=== PATIENT | male | born 1980 | race African-American/Black ===

== ENCOUNTER 2019-01-10 23:48 | Emergency (ER) | payer MEDICAID ==
[~2019-01-10] VITALS: Ht 180.3 cm; Wt 97.5 kg
[2019-01-11 05:23] VITALS: BP 113/82
== END 2019-01-11 05:47 | disposition home or self-care (01) ==
LOC: ER 23:49
DX: S40.862A Insect bite (nonvenomous) of left upper arm, initial encounter (principal); S90.561A Insect bite (nonvenomous), right ankle, initial encounter; W57.XXXA Bitten or stung by nonvenomous insect and other nonvenomous arthropods, initial encounter; Y93.89 Activity, other specified; Y99.8 Other external cause status; Y92.89 Other specified places as the place of occurrence of the external cause

== ENCOUNTER 2021-04-23 10:18 | Emergency (ER) | payer MEDICAID ==
[~2021-04-23] VITALS: Ht 182.9 cm; Wt 99.8 kg
[2021-04-23 10:44] VITALS: BP 132/86
[2021-04-23 11:02] LABS: Urine WBC None Seen /hpf (0 - 3)
[2021-04-23 11:23] LABS: Urine Bacteria NONE SEEN /hpf (None Seen); Urine Blood Negative /uL (Negative); Urine Specific Gravity 1.004 (1.001-1.035)
[2021-04-23] MEDS ORDERED: AZIT500T66 PO ×2 (11:44→11:46)
[2021-04-23] MEDS ORDERED: PROM1SOL4 PO (11:46)
== END 2021-04-23 11:52 | disposition home or self-care (01) ==
LOC: ER 10:18
DX: J20.9 Acute bronchitis, unspecified (principal); R10.9 Unspecified abdominal pain; Z79.2 Long term (current) use of antibiotics; Z79.899 Other long term (current) drug therapy
CPT/HCPCS: 71046; 81001

== ENCOUNTER 2023-07-07 09:30 | Emergency (ER) | payer MEDICAID, OTHER ==
[~2023-07-07] VITALS: Ht 180.3 cm; Wt 100.3 kg
[~2023-07-07 09:30] MED LIST: AZIT500T66 PO; PROM1SOL4 PO
[2023-07-07 09:36] VITALS: TEMP 98.2
[2023-07-07 09:45] VITALS: BP 121/88; PULSE 76; RESP 18; O2SAT 98
[2023-07-07] MEDS ORDERED: AMOX875T4 PO (10:54)
[2023-07-07] MEDS ORDERED: IBUP-1455 PO (10:54)
== END 2023-07-07 10:54 | disposition home or self-care (01) ==
LOC: ER 09:30
DX: K02.9 Dental caries, unspecified (principal)

== ENCOUNTER 2024-02-19 15:05 | Emergency (ER) | payer MEDICAID, OTHER ==
[~2024-02-19] VITALS: Ht 180.3 cm; Wt 96.6 kg
[~2024-02-19 15:05] MED LIST changes: +AMOX875T4 PO; +AUG875T PO; +IBUP-1455 PO; +TRAM50TA2 PO
[2024-02-19 15:37] VITALS: BP 116/68; PULSE 83; RESP 18; O2SAT 98
[2024-02-19] MEDS: KETOROLAC TROMETH 60MG/2ML VIAL IM ONE (15:45)
[2024-02-19] MEDS: DexAMETHasone SOD PHOS 10MG/1ML VIAL INJ IM ONE (15:45)
[2024-02-19 16:10] LABS: Rapid Strep A Screen-Throat Negative
[2024-02-19] MEDS ORDERED: IBUP-1455 PO (17:09)
== END 2024-02-19 18:06 | disposition home or self-care (01) ==
LOC: ER 15:05
DX: J02.9 Acute pharyngitis, unspecified (principal); R13.10 Dysphagia, unspecified; R07.9 Chest pain, unspecified; Z98.890 Other specified postprocedural states
CPT/HCPCS: 70360; 71046; 87070; 87880; 96372; 99284; J1100; J1885

== ENCOUNTER 2024-05-04 17:23 | Emergency (ER) | payer MEDICAID ==
[~2024-05-04] VITALS: Ht 182.9 cm; Wt 95.0 kg
--- NOTE | 2024-05-04 21:08 | ED.PDOC ---
SOB-HPI HPI Comments THIS IS A 43-YEAR-OLD MALE PRESENTS TO THE ED CHIEF COMPLAINT SORE THROAT CONGESTION X3 DAYS. PATIENT STATES HAS BEEN TAKING [id number] MEDICATIONS WITH 0 RELIEF. HIS MAIN COMPLAINT IS THE SORE THROAT. HE DENIES CHEST PAIN, DIFFICULTY BREATHING, SHORTNESS OF BREATH, DIARRHEA, OR VOMITING. Chief Complaint: Flu like Time Seen by MD: 18:38 Primary Care Provider: NONE Reviewed notes: Nurses Notes, Medications, Allergies Information Source: Patient Mode of Arrival: Ambulatory Past Medical History PAST MEDICAL HISTORY: Seizures Surgical History: Hernia Repair Family History Family History: Reviewed,noncontributory to illness Social History Smoker: Non-Smoker Alcohol: Occasionally Drugs: Denies Drug Use Lives In: Home Constitutional: reports: fever; denies: chills, diaphoresis, fatigue, malaise, sweats, weakness, others EENTM: reports: nasal discharge, throat pain, throat swelling; denies: blurred vision, double vision, ear bleeding, ear discharge, ear drainage, ear pain, ear ringing, eye pain, eye redness, hearing loss, mouth pain, mouth swelling, nose bleeding, nose congestion, nose pain, photophobia, tearing, voice changes, others Respiratory: denies: cough, hemoptysis, orthopnea, SOB at rest, shortness of breath, SOB with excertion, stridor, wheezing, others Cardiovascular: denies: chest pain, dizzy spells, diaphoresis, Dyspnea on exertion, edema, irregular heart beat, left arm pain, lightheadedness, palpitations, PND, syncope, others Gastrointestinal: denies: abdomen distended, abdominal pain, blood streaked bowels, constipated, diarrhea, dysphagia, difficulty swallowing, hematemesis, melena, nausea, poor appetite, poor fluid intake, rectal bleeding, rectal pain, vomiting, others Genitourinary: denies: burning, dysuria, flank pain, frequency, hematuria, incontinence, penile discharge, penile sore, pain, testicle pain, testicle swelling, urgency, others Neurological: denies: dizziness, fainting, headache, left sided numbness, left sided weakness, numbness, paresthesia, pre-existing deficit, right sided numbness, right sided weakness, seizure, speech problems, tingling, tremors, weakness, others Musculoskeletal: denies: back pain, gout, joint pain, joint swelling, muscle pain, muscle stiffness, neck pain, others Integumetry: denies: bruises, change in color, change in hair/nails, dryness, laceration, lesions, lumps, rash, wounds, others Allergic/Immunocompromised: denies: Difficulty Healing, Frequent Infections, Hives, Itching, others Hematologic/Lymphatic: denies: anemia, blood clots, easy bleeding, easy bruising, swollen glands, others Endocrine: denies: excessive hunger, excessive sweating, excessive thirst, excessive urination, flushing, intolerance to cold, intolerance to heat, unexplained weight gain, unexplained weight loss, others Psychiatric: denies: anxiety, bipolar disorder, depression, hopeless, panic disorder, schizophrenia, sleepless, suicidal, others Physical Exam General Appearance: No Apparent Distress, Normal HEENT: Pharyngeal Erythema (TONSILS GRADE 3 WITHOUT EXUDATE), TMs Normal Neck: Full Range of Motion, Non-Tender Respiratory: Lungs Clear, No Respiratory Distress, Normal Breath Sounds Cardiovascular: No Edema, No JVD, No Murmur, No Gallop, Normal Peripheral Pulses, Regular Rate/Rhythm Breast Exam: Deferred Gastrointestinal: No Organomegaly, Non Tender, No Pulsatile Mass, Normal Bowel Sounds, Soft Genitalia: Deferred Pelvic: Deferred Rectal: Deferred Extremities: Normal capillary refill, Normal inspection, Normal range of motion, Non-tender, No pedal edema Musculoskeletal : Apperance: Normal Neurologic: Alert, needle board repairer II-XII nml as Tested, No Motor Deficits, Normal Affect, Normal Mood, No Sensory Deficits Cerebellar Function: Normal Reflexes: Normal Skin: Dry, Normal Color, Warm Lymphatic: No Adenopathy Was a procedure done? Was a procedure done?: No Differential Dx Differential Diagnosis: Pneumonia, Sinusitis, Allergic Rhinitis, Otitis Media, Peritonsillar Abscess, Peritonsillar Cellulitis, Pharyngitis, URI X-Ray, Labs, Meds, VS Vital Signs Date Time Temp Pulse Resp B/P (MAP) Pulse Ox O2 Delivery O2 Flow Rate FiO2 05/04/24 17:42 98.3 90 18 118/81 (93) 100 Lab Test 05/04/24 20:15 Range/Units Influenza Type A Antigen Negative Negative Influenza Type B Antigen Negative Negative X-Ray, Labs, Meds, VS Comment LIKELY BACTERIAL WE WILL START TRIAL OF OUTPATIENT ANTIBIOTICS PATIENT GIVEN DECADRON 10 MG IM PRIOR TO DISCHARGE FOR THROAT PAIN AND SWELLING. PATIENT REQUESTING DISCHARGE AT THIS TIME. HE IS TO FOLLOW UP WITH HIS PCP IN 2-3 DAYS NECESSARY INCREASE P.O. FLUIDS WITH ELECTROLYTES CONSIDER POPSICLES FOR THROAT PAIN. [id number] TYLENOL OR MOTRIN NEEDED FOR PAIN AND FEVER PE R LABELED DOSING INSTRUCTIONS. PATIENT INDICATED UNDERSTANDING AGREES WITH DISCHARGE PLAN OF CARE. Time of 1ST Reevaluation: 22:32 Reevaluation 1ST: Improved Patient Education/Counseling: Diagnosis, Treatment, Prognosis, Need For Follow Up Family Education/Counseling: No Family Present Departure 1 Departure Time of Disposition: 22:31 Impression: Primary Impression: Pharyngitis Qualified Codes: J02.9 - Acute pharyngitis, unspecified Disposition: HOME / SELF CARE / HOMELESS Condition: Stable e-Prescriptions Amoxicillin & Pot Clavulanate (AUGMENTIN TABLET) 875 Mg Tb 1 TAB PO BID for 10 Days, #20 TAB Prov: DANILO MILNER 05/04/24 Discharged With: Self Critical Care Note Critical Care Time?: No Stability Stability form required: No Heart Score Heart Score: Heart Score Response (Comments) Value History N/A 0 EKG N/A 0 Age <45 0 Risk Factors N/A 0 Troponin N/A 0 Total 0 DANILO MILNER May 04, 2024 21:08
[2024-05-04 22:19] LABS: Rapid Influenza A Negative (Negative); Rapid Influenza B Negative (Negative)
[2024-05-04] MEDS ORDERED: AUG875T PO (22:31)
[2024-05-04] MEDS: DexAMETHasone SOD PHOS 10MG/1ML VIAL INJ IM ONE (23:05)
[2024-05-04 23:12] VITALS: BP 136/93; PULSE 94; RESP 16; TEMP 99.1; O2SAT 97
== END 2024-05-04 23:12 | disposition home or self-care (01) ==
LOC: ER 17:23
DX: J02.9 Acute pharyngitis, unspecified (principal); Z98.890 Other specified postprocedural states
CPT/HCPCS: 87804; 96372; 99283; J1100

== ENCOUNTER 2024-12-22 21:36 | Emergency (ER) | payer MEDICAID ==
[~2024-12-22] VITALS: Ht 180.3 cm; Wt 100.2 kg
[2024-12-22 22:53] LABS: COVID19 ANTIGEN SOFIA FIA NEGATIVE (NEGATIVE)
--- NOTE | 2024-12-22 22:59 | ED.PDOC ---
SOB-HPI HPI Comments PT CAME TO THE ER WITH CC OF FLULIKE SYMPTOMS X5 DAYS. PT REPORTS COUGH, IRRITATION. PT IS A&OX4 RR EVEN AND REGULAR NO DISTRESS NOTED AT THIS TIME. PT DENEIS N/V/D CP SOB Chief Complaint: Flu like Time Seen by MD: 21:51 Primary Care Provider: NONE Reviewed notes: Nurses Notes, Medications, Allergies Mode of Arrival: Ambulatory Past Medical History PAST MEDICAL HISTORY: Seizures Surgical History: Hernia Repair Family History Family History: Reviewed,noncontributory to illness Social History Smoker: Non-Smoker Alcohol: Occasionally Drugs: Denies Drug Use Lives In: Home All Other Systems: Reviewed and Negative (SEE HPI) Physical Exam General Appearance: No Apparent Distress, Normal HEENT: Pharyngeal Erythema, TMs Normal Neck: Full Range of Motion, Non-Tender Respiratory: Lungs Clear, No Respiratory Distress, Normal Breath Sounds Cardiovascular: No Edema, No JVD, No Murmur, No Gallop, Normal Peripheral Pulses, Regular Rate/Rhythm Breast Exam: Deferred Gastrointestinal: No Organomegaly, Non Tender, No Pulsatile Mass, Normal Bowel Sounds, Soft Genitalia: Deferred Pelvic: Deferred Rectal: Deferred Extremities: No calf tenderness, Normal capillary refill, Normal inspection, Normal range of motion, Non-tender, No pedal edema Musculoskeletal : Apperance: Normal Neurologic: Alert, No Motor Deficits, Normal Affect, Normal Mood, No Sensory Deficits Cerebellar Function: Normal Reflexes: NOT DONE Skin: Dry, Normal Color, Warm Lymphatic: No Adenopathy Was a procedure done? Was a procedure done?: No Differential Dx Differential Diagnosis: Pneumonia, URI X-Ray, Labs, Meds, VS Vital Signs Date Time Temp Pulse Resp B/P (MAP) Pulse Ox O2 Delivery O2 Flow Rate FiO2 12/22/24 23:34 65 18 97 Room Air 12/22/24 23:16 98.6 65 18 121/87 (98) 97 98.6 12/22/24 21:37 99.0 69 20 120/75 98 99.0 Lab Test 12/22/24 22:22 Range/Units Influenza Type A Antigen Negative Negative Influenza Type B Antigen Negative Negative SARS-CoV-2 Antigen (Rapid) Negative NEGATIVE Time of 1ST Reevaluation: 21:00 Reevaluation 1ST: Unchanged Time of 2ND Reevaluation: 22:59 Reevaluation 2ND: Improved Patient Education/Counseling: Diagnosis, Treatment, Prognosis, Need For Follow Up Family Education/Counseling: No Family Present SEPSIS Sepsis Screen Date sepsis recognized/suspect: Dec 22, 2024 Time Sepsis recognized/suspect: 2141 Recent Procedure: No On Antibiotic Therapy: No Respiratory Rate >20: No Heart Rate >90: No Temp<36 C (96.8 F) or >38.3 C: No SBP <90 or MAP <65 mmHG: No New Acute Mental Status Change: No Is the patient on CPAP, BIPAP,: No Vital Signs Date Time Temp Pulse Resp B/P (MAP) Pulse Ox O2 Delivery O2 Flow Rate FiO2 12/22/24 23:34 65 18 97 Room Air 12/22/24 23:16 98.6 65 18 121/87 (98) 97 98.6 12/22/24 21:37 99.0 69 20 120/75 98 99.0 Departure 1 Departure Time of Disposition: 22:59 Impression: Primary Impression: URI (upper respiratory infection) Qualified Codes: J06.9 - Acute upper respiratory infection, unspecified Disposition: HOME / SELF CARE / HOMELESS Condition: Stable Discharged With: Self Critical Care Note Critical Care Time?: No Stability Stability form required: No Heart Score Heart Score: Heart Score Response (Comments) Value History N/A 0 EKG N/A 0 Age 45-64 1 Risk Factors N/A 0 Troponin N/A 0 Total 1 DANILO MILNER Dec 22, 2024 22:59
[2024-12-22] MEDS ORDERED: AZIT-43 PO (23:05)
[2024-12-22] MEDS ORDERED: IBUP-1456 PO (23:05)
[2024-12-22 23:16] VITALS: BP 121/87; TEMP 98.6
[2024-12-22 23:34] VITALS: PULSE 65; RESP 18; O2SAT 97
[2024-12-22] MEDS: AZITHROMYCIN 250 MG TAB PO ONE (23:34)
== END 2024-12-22 23:40 | disposition home or self-care (01) ==
LOC: ER 21:36
DX: J11.1 Influenza due to unidentified influenza virus with other respiratory manifestations (principal); Z98.890 Other specified postprocedural states; Z20.822 Contact with and (suspected) exposure to COVID-19
CPT/HCPCS: 36415; 87426; 87804

== ENCOUNTER 2025-01-06 12:44 | Emergency (ER) | payer MEDICAID ==
[~2025-01-06] VITALS: Ht 180.3 cm; Wt 97.9 kg
[2025-01-06 12:45] VITALS: BP 134/81; PULSE 78; RESP 18; TEMP 97.9; O2SAT 97
== END 2025-01-06 15:06 | disposition left against medical advice (07) ==
LOC: ER 12:44
DX: J11.1 Influenza due to unidentified influenza virus with other respiratory manifestations (principal); Z53.21 Procedure and treatment not carried out due to patient leaving prior to being seen by health care provider